=== PATIENT | female | born 1960 | race African-American/Black ===

== ENCOUNTER 2017-06-08 11:19 | Emergency (ER) | payer MEDICARE, MEDICAID | END 2017-06-08 11:47 | disposition home or self-care (01) | LOC: NAV ERS 11:19 | DX: H10.9 Unspecified conjunctivitis (principal); I12.0 Hypertensive chronic kidney disease with stage 5 chronic kidney disease or end stage renal disease; E11.22 Type 2 diabetes mellitus with diabetic chronic kidney disease; N18.6 End stage renal disease; F17.210 Nicotine dependence, cigarettes, uncomplicated; Z79.899 Other long term (current) drug therapy; Z79.82 Long term (current) use of aspirin | CPT/HCPCS: 99282 ==

== ENCOUNTER 2017-06-15 13:16 | Emergency (ER) | payer MEDICARE, MEDICAID ==
[2017-06-15 14:23] LABS: #Eosinphils 0.1 thou/uL (0.0-0.7); #Lymphocytes 0.3 thou/uL (1.20-3.40); #Monocytes 0.2 thou/uL (0.11-0.59); %Basophils 0.5 % (0.0-1.0); %Eosinophils 1.2 % (0.0-10.0); %Monocytes 4.8 % (0.0-10.0); %Neutrophils 86.5 % (42.0-75.0); Hemoglobin 11.6 g/dL (12.0-16.0); Mean Corpuscular HGB CONC 29.8 g/dL (32.0-36.0); Mean Corpuscular Hemoglobin 28.5 pg (27.0-31.0); Mean Corpuscular Volume 95.5 fl (81.0-99.0); Mean Platelet Volume 6.7 fL (7.4-10.4); Platelet Count 229 thou/uL (130-400); RBC Distribution Width 16.2 % (11.5-14.5); Red Blood Cell (RBC) Count 4.06 mill/uL (4.20-5.40); White Blood Cell (WBC) Count 4.7 thou/uL (4.8-10.8)
[2017-06-15 14:37] LABS: ALT (SGPT) 11 U/L (8-55); AST (SGOT) 16 U/L (5-34); Albumin 4.1 g/dL (3.5-5.0); Alkaline Phosphatase 98 U/L (40-150); Anion Gap 18 mmol/L (10-20); BUN (Urea Nitrogen) 23 mg/dL (9.8-20.1); Bilirubin, Total 0.5 mg/dL (0.2-1.2); Calc. Creatinine Clearance 0 mL/min (70-130); Calcium 9.9 mg/dL (7.8-10.44); Carbon Dioxide 30 mmol/L (22-29); Chloride 99 mmol/L (98-107); Estimated GFR-MDRD 14; Globulin 4.4 g/dL (2.4-3.5); Glucose 155 mg/dL (70-105); Potassium 3.3 mmol/L (3.5-5.1); Protein, Total 8.5 g/dL (6.0-8.3); Sodium 144 mmol/L (136-145)
[2017-06-15 14:38] LABS: Troponin I 0.103 ng/mL (< 0.028)
[2017-06-15 14:45] LABS: Critical Call CKMBM 0
--- NOTE | 2017-06-15 14:48 | RAD ---
PORTABLE AP CHEST X-RAY 06/15/2017 HISTORY: Shortness of breath. COMPARISON: 03/22/2017 FINDINGS: The cardiac silhouette remains enlarged. Vascular stents again overly the right axilla, in the geni on of the right brachiocephalic vein. The pulmonary vasculature is mildly increased. The lungs are otherwise clear. No other interval change. IMPRESSION: Mild congestive heart failure. Correlation for mild congestive heart failure is suggested. POS: [facility]
== END 2017-06-15 15:40 | disposition short-term general hospital (02) ==
LOC: NAV ERS 13:16
DX: I13.2 Hypertensive heart and chronic kidney disease with heart failure and with stage 5 chronic kidney disease, or end stage renal disease (principal); E11.22 Type 2 diabetes mellitus with diabetic chronic kidney disease; N18.6 End stage renal disease; I50.9 Heart failure, unspecified; Z99.2 Dependence on renal dialysis; F17.210 Nicotine dependence, cigarettes, uncomplicated; Z86.73 Personal history of transient ischemic attack (TIA), and cerebral infarction without residual deficits; Z79.82 Long term (current) use of aspirin; Z79.899 Other long term (current) drug therapy
CPT/HCPCS: 71010; 80053; 82553; 83880; 84484; 85025; 93005

== ENCOUNTER 2017-07-05 19:17 | Emergency (ER) | payer MEDICARE, MEDICAID ==
[2017-07-05] MEDS ORDERED: HYDROcodone/Acetaminophen 7.5/325 mg Tablet ONE (19:54)
[2017-07-05 19:57] LABS: #Eosinphils 0.1 thou/uL (0.0-0.7); #Lymphocytes 0.5 thou/uL (1.20-3.40); #Monocytes 0.3 thou/uL (0.11-0.59); #Neutrophils 4.9 thou/uL (1.40-6.50); %Basophils 0.3 % (0.0-1.0); %Eosinophils 1.4 % (0.0-10.0); %Lymphocytes 8.1 % (21.0-51.0); %Monocytes 5.6 % (0.0-10.0); %Neutrophils 84.6 % (42.0-75.0); Hemoglobin 10.6 g/dL (12.0-16.0); Mean Corpuscular HGB CONC 32.1 g/dL (32.0-36.0); Mean Corpuscular Hemoglobin 30.1 pg (27.0-31.0); Mean Corpuscular Volume 93.7 fl (81.0-99.0); Mean Platelet Volume 6.6 fL (7.4-10.4); Platelet Count 199 thou/uL (130-400); Red Blood Cell (RBC) Count 3.51 mill/uL (4.20-5.40); White Blood Cell (WBC) Count 5.8 thou/uL (4.8-10.8)
[2017-07-05 20:16] LABS: CKMB 5.1 ng/mL (0-6.6); Troponin I 0.244 ng/mL (< 0.028)
[2017-07-05 20:18] LABS: ALT (SGPT) 13 U/L (8-55); AST (SGOT) 16 U/L (5-34); Alkaline Phosphatase 104 U/L (40-150); Anion Gap 27 mmol/L (10-20); BUN (Urea Nitrogen) 47 mg/dL (9.8-20.1); Bilirubin, Total 0.4 mg/dL (0.2-1.2); Calc. Creatinine Clearance 0 mL/min (70-130); Calcium 10.3 mg/dL (7.8-10.44); Carbon Dioxide 27 mmol/L (22-29); Chloride 91 mmol/L (98-107); Estimated GFR-MDRD 8; Glucose 108 mg/dL (70-105)
[2017-07-05 20:22] LABS: Sodium 141 mmol/L (136-145)
[2017-07-05] MEDS ORDERED: Nitroglycerin 2% Ointment 1 INCH/1 GM Packet ONE (20:51)
--- NOTE | 2017-07-05 21:50 | CT ---
BRAIN CT WITHOUT IV CONTRAST: History: 56-year-old female with frontal temporal headaches which began this morning. Comparison: 09-11-14 FINDINGS: No focal mass or midline shift. No intra or extraaxial hemorrhage. Sinuses and mastoids are clear of acute process. IMPRESSION: No acute intracranial process. No mass or bleed. POS: [facility]
--- NOTE | 2017-07-05 21:52 | RAD ---
SEMI UPRIGHT PORTABLE CHEST ONE VIEW: History: 56-year-old female with dyspnea and headache. Comparison: 06-15-17 FINDINGS: Cardiomegaly with mild bilateral vascular congestion. Multiple right sided venous vascular stents. M ild increased interstitial markings, possibly some mild interstitial edema. No significant confluent pneumonia or pleural effusion. IMPRESSION: Cardiomegaly with some mild vascular congestion and possible mild interstitial edema, stable from pr ior study, 06-15-17. POS: [facility]
== END 2017-07-05 22:30 | disposition short-term general hospital (02) ==
LOC: NAV ERS 19:17
DX: G44.209 Tension-type headache, unspecified, not intractable (principal); R06.02 Shortness of breath; R79.89 Other specified abnormal findings of blood chemistry; E11.9 Type 2 diabetes mellitus without complications; I12.0 Hypertensive chronic kidney disease with stage 5 chronic kidney disease or end stage renal disease; N18.6 End stage renal disease; F17.210 Nicotine dependence, cigarettes, uncomplicated; Z99.2 Dependence on renal dialysis; Z79.899 Other long term (current) drug therapy; Z79.82 Long term (current) use of aspirin; Z86.73 Personal history of transient ischemic attack (TIA), and cerebral infarction without residual deficits
CPT/HCPCS: 36415; 70450; 71010; 80053; 82553; 83880; 84484; 85025; 93005; 94760

== ENCOUNTER 2017-09-29 15:51 | Emergency (ER) | payer MEDICARE, MEDICAID ==
[2017-09-29] MEDS ORDERED: Metoclopramide HCl 10 MG TAB ONE (16:12)
[2017-09-29] MEDS ORDERED: predniSONE 20 MG TAB ONE (16:12)
[2017-09-29] MEDS ORDERED: diphenhydrAMINE 25 MG CAP ONE (16:12)
[2017-09-29] MEDS ORDERED: HYDROcodone/Acetaminophen 10/325 mg Tablet ONE (16:18)
== END 2017-09-29 17:15 | disposition home or self-care (01) ==
LOC: NAV ERS 15:51
DX: G43.909 Migraine, unspecified, not intractable, without status migrainosus (principal); Z79.899 Other long term (current) drug therapy; Z79.82 Long term (current) use of aspirin
CPT/HCPCS: 99283; J7506

== ENCOUNTER 2017-10-06 12:25 | Emergency (ER) | payer MEDICARE, MEDICAID ==
--- NOTE | 2017-10-06 13:11 | RAD ---
CHEST ONE VIEW: History: 57-year-old female with dyspnea and shortness of breath. Comparison: 07-05-17 FINDINGS: Stable cardiomegaly and right sided venous vascular stents. Mild stable vascular congestion. No confl uent pneumonia, overt edema, or significant pleural effusion. IMPRESSION: Stable cardiomegaly and mild vascular congestion. No significant new process. POS: [facility]
[2017-10-06 13:36] LABS: ALT (SGPT) 19 U/L (8-55); AST (SGOT) 17 U/L (5-34); Albumin 3.8 g/dL (3.5-5.0); Alkaline Phosphatase 100 U/L (40-150); Anion Gap 21 mmol/L (10-20); BUN (Urea Nitrogen) 34 mg/dL (9.8-20.1); Bilirubin, Total 0.5 mg/dL (0.2-1.2); Calc. Creatinine Clearance 0 mL/min (70-130); Carbon Dioxide 31 mmol/L (22-29); Chloride 92 mmol/L (98-107); Estimated GFR-MDRD 8; Globulin 4.5 g/dL (2.4-3.5); Glucose 142 mg/dL (70-105); Potassium 3.4 mmol/L (3.5-5.1); Protein, Total 8.3 g/dL (6.0-8.3); Sodium 141 mmol/L (136-145); Troponin I 0.149 ng/mL (< 0.028)
[2017-10-06 13:39] LABS: CKMB 7.9 ng/mL (0-6.6)
[2017-10-06 14:36] LABS: #Lymphocytes 0.5 thou/uL (1.20-3.40); #Monocytes 0.3 thou/uL (0.11-0.59); #Neutrophils 3.5 thou/uL (1.40-6.50); %Basophils 0.7 % (0.0-1.0); %Eosinophils 0.8 % (0.0-10.0); %Lymphocytes 10.8 % (21.0-51.0); %Monocytes 6.7 % (0.0-10.0); Hemoglobin 10.3 g/dL (12.0-16.0); Mean Corpuscular HGB CONC 30.2 g/dL (32.0-36.0); Mean Corpuscular Hemoglobin 29.9 pg (27.0-31.0); Mean Corpuscular Volume 99.1 fl (81.0-99.0); Mean Platelet Volume 6.9 fL (7.4-10.4); Platelet Count 240 thou/uL (130-400); Red Blood Cell (RBC) Count 3.43 mill/uL (4.20-5.40); White Blood Cell (WBC) Count 4.3 thou/uL (4.8-10.8)
== END 2017-10-06 16:05 | disposition short-term general hospital (02) ==
LOC: NAV ERS 12:25
DX: J81.0 Acute pulmonary edema (principal); I12.0 Hypertensive chronic kidney disease with stage 5 chronic kidney disease or end stage renal disease; E11.22 Type 2 diabetes mellitus with diabetic chronic kidney disease; N18.6 End stage renal disease; F17.210 Nicotine dependence, cigarettes, uncomplicated; E78.5 Hyperlipidemia, unspecified; Z86.73 Personal history of transient ischemic attack (TIA), and cerebral infarction without residual deficits; Z99.2 Dependence on renal dialysis; Z79.82 Long term (current) use of aspirin; Z79.899 Other long term (current) drug therapy
CPT/HCPCS: 36415; 71010; 80053; 82553; 83880; 84484; 85025; 93005; 94760

== ENCOUNTER 2018-01-10 18:05 | Emergency (ER) | payer MEDICARE, MEDICAID ==
[2018-01-10] MEDS ORDERED: Ibuprofen 200 MG TAB ONE ×2 (18:43→18:44)
== END 2018-01-10 19:05 | disposition home or self-care (01) ==
LOC: NAV ERS 18:05
DX: S93.401A Sprain of unspecified ligament of right ankle, initial encounter (principal); I12.0 Hypertensive chronic kidney disease with stage 5 chronic kidney disease or end stage renal disease; E11.22 Type 2 diabetes mellitus with diabetic chronic kidney disease; F17.210 Nicotine dependence, cigarettes, uncomplicated; N18.6 End stage renal disease; E78.5 Hyperlipidemia, unspecified; Z86.73 Personal history of transient ischemic attack (TIA), and cerebral infarction without residual deficits; Z79.82 Long term (current) use of aspirin; Z79.899 Other long term (current) drug therapy; Z99.2 Dependence on renal dialysis; Z79.02 Long term (current) use of antithrombotics/antiplatelets; W19.XXXA Unspecified fall, initial encounter; Y93.01 Activity, walking, marching and hiking
CPT/HCPCS: 99283

== ENCOUNTER 2018-06-25 01:54 | Emergency (ER) | payer MEDICARE, MEDICAID ==
[2018-06-25] MEDS ORDERED: Metoclopramide HCl 10 MG TAB ONE (02:26)
[2018-06-25] MEDS ORDERED: Metoclopramide HCl 10 MG/2 ML VIAL ONE (02:26)
[2018-06-25] MEDS ORDERED: diphenhydrAMINE 50 MG/ML VIAL ONE (02:26)
[2018-06-25] MEDS ORDERED: cloNIDine 0.1 MG TAB ONE ×2 (02:38→03:29)
[2018-06-25 02:40] LABS: #Eosinphils 0.1 thou/uL (0.0-0.7); #Lymphocytes 0.4 thou/uL (1.20-3.40); #Monocytes 0.3 thou/uL (0.11-0.59); #Neutrophils 6.4 thou/uL (1.40-6.50); %Basophils 0.2 % (0.0-1.0); %Eosinophils 0.9 % (0.0-10.0); %Lymphocytes 5.4 % (21.0-51.0); %Monocytes 4.6 % (0.0-10.0); %Neutrophils 88.9 % (42.0-75.0); Mean Corpuscular HGB CONC 30.7 g/dL (32.0-36.0); Mean Corpuscular Hemoglobin 28.9 pg (27.0-31.0); Mean Corpuscular Volume 94.1 fL (78.0-98.0); Mean Platelet Volume 6.4 fL (7.4-10.4); Platelet Count 318 thou/uL (130-400); RBC Distribution Width 17.9 % (11.5-14.5); White Blood Cell (WBC) Count 7.2 thou/uL (4.8-10.8)
[2018-06-25 02:57] LABS: ALT (SGPT) 14 U/L (8-55); AST (SGOT) 20 U/L (5-34); Albumin 3.9 g/dL (3.5-5.0); Alkaline Phosphatase 117 U/L (40-150); Anion Gap 21 mmol/L (10-20); BUN (Urea Nitrogen) 34 mg/dL (9.8-20.1); Bilirubin, Total 0.3 mg/dL (0.2-1.2); CK (CPK) 122 U/L (29-168); Calc. Creatinine Clearance 0 mL/min (70-130); Calcium 10.6 mg/dL (7.8-10.44); Carbon Dioxide 28 mmol/L (22-29); Chloride 96 mmol/L (98-107); Estimated GFR-MDRD 8; Globulin 5.1 g/dL (2.4-3.5); Glucose 113 mg/dL (70-105); Lipase 38 U/L (8-78); Potassium 4.2 mmol/L (3.5-5.1); Sodium 141 mmol/L (136-145)
[2018-06-25 02:59] LABS: CKMB 3.5 ng/mL (0-6.6)
[2018-06-25] MEDS ORDERED: Diltiazem 125 MG/25 ML ONE (03:24)
[2018-06-25] MEDS ORDERED: Sodium Chloride 0.9% 100 ML ONE ×2 (03:25→03:26)
[2018-06-25] MEDS ORDERED: hydrALAZINE 20 MG/ML VIAL ONE (03:28)
--- NOTE | 2018-06-25 08:06 | RAD ---
SINGLE VIEW OF THE CHEST: COMPARISON: 10/06/17. HISTORY: Dyspnea. FINDINGS: A single view of the chest shows an enlarged but stable cardiomediastinal silhouette with atheroscler otic calcifications in the aorta. This exam is limited secondary to under penetration. There is no evidence of consolidation, mass, or pleural effusion. A stent projects over the right upper chest an d along the right upper extremity. IMPRESSION: Cardiomegaly without evidence of acute cardiopulmonary disease. POS: [facility]
== END 2018-06-25 04:18 | disposition short-term general hospital (02) ==
LOC: NAV ERS 01:54
DX: I12.0 Hypertensive chronic kidney disease with stage 5 chronic kidney disease or end stage renal disease (principal); N18.6 End stage renal disease; E11.22 Type 2 diabetes mellitus with diabetic chronic kidney disease; E78.5 Hyperlipidemia, unspecified; Z86.73 Personal history of transient ischemic attack (TIA), and cerebral infarction without residual deficits; Z99.2 Dependence on renal dialysis; F17.210 Nicotine dependence, cigarettes, uncomplicated; Z79.899 Other long term (current) drug therapy; Z79.82 Long term (current) use of aspirin
CPT/HCPCS: 36415; 71045; 80053; 82550; 82553; 83690; 83880; 84484; 85025; 93005; 94760; 96365; 96375; J0360; J1200; J2765; J7050

== ENCOUNTER 2018-09-01 14:26 | Emergency (ER) | payer MEDICARE, MEDICAID ==
[2018-09-01 15:16] LABS: #Eosinphils 0.1 thou/uL (0.0-0.7); #Lymphocytes 0.5 thou/uL (1.20-3.40); #Monocytes 0.3 thou/uL (0.11-0.59); %Basophils 0.3 % (0.0-1.0); %Eosinophils 2.5 % (0.0-10.0); %Lymphocytes 12.2 % (21.0-51.0); %Monocytes 6.4 % (0.0-10.0); %Neutrophils 78.6 % (42.0-75.0); Hemoglobin 9.8 g/dL (12.0-16.0); Mean Corpuscular HGB CONC 29.9 g/dL (32.0-36.0); Mean Corpuscular Hemoglobin 30.8 pg (27.0-31.0); Mean Platelet Volume 6.9 fL (7.4-10.4); Platelet Count 194 thou/uL (130-400); Red Blood Cell (RBC) Count 3.17 mill/uL (4.20-5.40); White Blood Cell (WBC) Count 3.9 thou/uL (4.8-10.8)
[2018-09-01 15:20] LABS: INR-International Normal Ratio 1.1; PTT 29.2 SEC (22.9-36.1); Prothrombin Time 14.1 SEC (12.0-14.7)
[2018-09-01 15:29] LABS: ALT (SGPT) 6 U/L (8-55); AST (SGOT) 11 U/L (5-34); Albumin 3.8 g/dL (3.5-5.0); Alkaline Phosphatase 83 U/L (40-150); Anion Gap 18 mmol/L (10-20); BUN (Urea Nitrogen) 24 mg/dL (9.8-20.1); Bilirubin, Total 0.5 mg/dL (0.2-1.2); Calc. Creatinine Clearance 0 mL/min (70-130); Calcium 9.4 mg/dL (7.8-10.44); Carbon Dioxide 29 mmol/L (22-29); Chloride 94 mmol/L (98-107); Estimated GFR-MDRD 14; Globulin 4.3 g/dL (2.4-3.5); Glucose 150 mg/dL (70-105); Potassium 3.5 mmol/L (3.5-5.1); Protein, Total 8.1 g/dL (6.0-8.3); Sodium 137 mmol/L (136-145)
== END 2018-09-01 15:59 | disposition home or self-care (01) ==
LOC: NAV ERS 14:26
DX: K92.2 Gastrointestinal hemorrhage, unspecified (principal); E11.9 Type 2 diabetes mellitus without complications; E78.5 Hyperlipidemia, unspecified; I12.0 Hypertensive chronic kidney disease with stage 5 chronic kidney disease or end stage renal disease; N18.6 End stage renal disease; Z99.2 Dependence on renal dialysis; F17.210 Nicotine dependence, cigarettes, uncomplicated
CPT/HCPCS: 80053; 82274; 85025; 85610; 85730

== ENCOUNTER 2018-12-10 18:38 | Emergency (ER) | payer MEDICARE, MEDICAID ==
[2018-12-10] MEDS ORDERED: diphenhydrAMINE 12.5 MG/5 ML UDCUP ONE (19:15)
[2018-12-10] MEDS ORDERED: Metoclopramide HCl 10 MG/2 ML VIAL ONE (19:15)
[2018-12-10] MEDS ORDERED: diphenhydrAMINE 50 MG/ML VIAL ONE (19:16)
== END 2018-12-10 20:00 | disposition home or self-care (01) ==
LOC: NAV ERS 18:38
DX: G43.909 Migraine, unspecified, not intractable, without status migrainosus (principal); I12.0 Hypertensive chronic kidney disease with stage 5 chronic kidney disease or end stage renal disease; E11.22 Type 2 diabetes mellitus with diabetic chronic kidney disease; N18.6 End stage renal disease; F17.210 Nicotine dependence, cigarettes, uncomplicated; Z79.82 Long term (current) use of aspirin; Z79.899 Other long term (current) drug therapy; Z79.891 Long term (current) use of opiate analgesic
CPT/HCPCS: 96374; 96375; J1200; J2765; Q0163

== ENCOUNTER 2019-01-02 13:32 | Emergency (ER) | payer MEDICARE, MEDICAID ==
[2019-01-02] MEDS ORDERED: methylPREDNISolone Sod Succ/PF 125 MG/2 ML VIAL ONE (13:54)
[2019-01-02] MEDS ORDERED: cefTRIAXone\\ROCEPHIN 1 GM VIAL ONE (13:54)
[2019-01-02 14:22] LABS: ALT (SGPT) 14 U/L (8-55); AST (SGOT) 19 U/L (5-34); Albumin 3.7 g/dL (3.5-5.0); Alkaline Phosphatase 83 U/L (40-150); Anion Gap 30 mmol/L (10-20); BUN (Urea Nitrogen) 51 mg/dL (9.8-20.1); Bilirubin, Total 0.2 mg/dL (0.2-1.2); CK (CPK) 144 U/L (29-168); Calc. Creatinine Clearance 0 mL/min (70-130); Calcium 10.3 mg/dL (7.8-10.44); Carbon Dioxide 26 mmol/L (22-29); Chloride 91 mmol/L (98-107); Estimated GFR-MDRD 9; Globulin 4.3 g/dL (2.4-3.5); Glucose 89 mg/dL (70-105); Sodium 141 mmol/L (136-145)
--- NOTE | 2019-01-02 14:28 | RAD ---
RADIOGRAPH CHEST 1 VIEW: Date: 01/02/2019. Time: 2:00 p.m. HISTORY: A 58-year-old female with dyspnea. COMPARISON: 12/30/2018. FINDINGS: Cardiomegaly. No alejandro pulmonary edema. Prominent interstitial markings. Subsegmental atelectasis at right base. No consolidation otherwise. Vascular stent in right arm (surrounded by large eggshel l calcification). Vascular stent from right medial supraclavicular level to right upper mediastinum. No pneumothorax. No effacement of lateral costophrenic angles. Mild pulmonary venous congestion. No interval change overall. IMPRESSION: 1. Cardiomegaly and mild pulmonary venous congestion. 2. Right-sided vascular stents. 3. No alejandro pulmonary alveolar edema. 4. No interval change since 3 days ago. NGOZI [] POS: [facility]
[2019-01-02 14:32] LABS: #Eosinphils 0.1 thou/uL (0.0-0.7); #Lymphocytes 0.4 thou/uL (1.20-3.40); #Monocytes 0.3 thou/uL (0.11-0.59); #Neutrophils 5.3 thou/uL (1.40-6.50); %Basophils 0.2 % (0.0-1.0); %Eosinophils 2.4 % (0.0-10.0); %Lymphocytes 6.1 % (21.0-51.0); %Monocytes 4.9 % (0.0-10.0); %Neutrophils 86.5 % (42.0-75.0); Hemoglobin 8.7 g/dL (12.0-16.0); Mean Corpuscular HGB CONC 30.1 g/dL (32.0-36.0); Mean Corpuscular Hemoglobin 28.5 pg (27.0-31.0); Mean Corpuscular Volume 94.7 fL (78.0-98.0); Mean Platelet Volume 6.6 fL (7.4-10.4); Platelet Count 221 thou/uL (130-400); RBC Distribution Width 16.8 % (11.5-14.5); Red Blood Cell (RBC) Count 3.07 mill/uL (4.20-5.40); White Blood Cell (WBC) Count 6.1 thou/uL (4.8-10.8)
[2019-01-02] MEDS ORDERED: Dextrose 50% Abboject 50 ML SYRINGE ONE (14:46)
[2019-01-02] MEDS ORDERED: Insulin Regular 300 UNITS/3 ML VIAL ONE (14:46)
[2019-01-02 14:54] LABS: CKMB 7.5 ng/mL (0-6.6)
[2019-01-02] MEDS ORDERED: Calcium Chloride 1 GM/10 ML Abboject SYRINGE ONE (14:54)
[2019-01-02] MEDS ORDERED: Calcium Gluc 4.6 MEQ/10 ML (100 MG/ML) ONE (14:57)
== END 2019-01-02 15:20 | disposition short-term general hospital (02) ==
LOC: NAV ERS 13:32
DX: I45.2 Bifascicular block (principal); E11.9 Type 2 diabetes mellitus without complications; E78.5 Hyperlipidemia, unspecified; I12.0 Hypertensive chronic kidney disease with stage 5 chronic kidney disease or end stage renal disease; N18.6 End stage renal disease; Z86.73 Personal history of transient ischemic attack (TIA), and cerebral infarction without residual deficits; Z99.2 Dependence on renal dialysis; F17.210 Nicotine dependence, cigarettes, uncomplicated; Z79.899 Other long term (current) drug therapy; Z79.82 Long term (current) use of aspirin
CPT/HCPCS: 71045; 80053; 82550; 82553; 84484; 85025; 93005; 94640; 94760; 96374; 96375; J0696; J1815; J2930; J7620

== ENCOUNTER 2019-03-04 22:08 | Emergency (ER) | payer MEDICARE, MEDICAID ==
--- NOTE | 2019-03-04 23:46 | RAD ---
EXAM: Chest PA and lateral: HISTORY: Dyspnea COMPARISON: 01/02/2019 FINDINGS: Heart: Cardiomegaly Aorta: Atherosclerosis Pulmonary vessels: Normal Costophrenic angles: Costophrenic angles are clear. Lungs: Multifocal alveolar opacities. Pneumothorax: No pneumothorax Osseous structures: No osseous abnormalities Stable vascular stent. Stable calcification in the medial right upper extremity soft tissue. IMPRESSION: 1. Cardiomegaly. Multi focal alveolar edema. Volume overload. 2. Atherosclerosis.
== END 2019-03-04 23:59 | disposition home or self-care (01) ==
LOC: NAV ERS 22:08
DX: I13.2 Hypertensive heart and chronic kidney disease with heart failure and with stage 5 chronic kidney disease, or end stage renal disease (principal); I50.9 Heart failure, unspecified; N18.6 End stage renal disease; F17.210 Nicotine dependence, cigarettes, uncomplicated; Z86.73 Personal history of transient ischemic attack (TIA), and cerebral infarction without residual deficits; Z79.899 Other long term (current) drug therapy; Z79.82 Long term (current) use of aspirin
CPT/HCPCS: 71046; 94640; 94760; J7620

== ENCOUNTER 2019-03-10 10:26 | Emergency (ER) | payer MEDICARE, MEDICAID ==
[2019-03-10] MEDS ORDERED: Bacitracin Zinc 1 Packet ONE (10:57)
[2019-03-10] MEDS ORDERED: cloNIDine 0.2 MG TAB ONE (11:22)
== END 2019-03-10 12:25 | disposition home or self-care (01) ==
LOC: NAV ERS 10:26
DX: L08.89 Other specified local infections of the skin and subcutaneous tissue (principal); I10 Essential (primary) hypertension; E11.9 Type 2 diabetes mellitus without complications; K21.9 Gastro-esophageal reflux disease without esophagitis; E78.5 Hyperlipidemia, unspecified; Z87.891 Personal history of nicotine dependence; Z79.82 Long term (current) use of aspirin; Z79.02 Long term (current) use of antithrombotics/antiplatelets; Z79.899 Other long term (current) drug therapy
CPT/HCPCS: 36416; 99283

== ENCOUNTER 2020-04-23 14:54 | Emergency (ER) | payer MEDICARE, MEDICAID ==
--- NOTE | 2020-04-23 16:02 | RAD ---
Left ankle 3 views HISTORY: Pain and swelling. FINDINGS: Joint spaces are preserved. Mild osteophytosis. Small nonspecific dystrophic soft tissue ca lcifications about the middle phalanx and proximal interphalangeal joint. Diffuse soft tissue swelling about the distal phalanx without aggressive osseous erosions or soft tis yovany gas evident. IMPRESSION : Soft tissue swelling of the distal ring finger. No soft tissue gas or evidence of active bone involve ment. Osteoarthritic changes.
[2020-04-23] MEDS ORDERED: Cephalexin 250 MG CAP ONE (16:11)
== END 2020-04-23 16:50 | disposition home or self-care (01) ==
LOC: NAV ERS 14:54
DX: S60.312A Abrasion of left thumb, initial encounter (principal); M79.645 Pain in left finger(s); E11.22 Type 2 diabetes mellitus with diabetic chronic kidney disease; I12.0 Hypertensive chronic kidney disease with stage 5 chronic kidney disease or end stage renal disease; N18.6 End stage renal disease; K21.9 Gastro-esophageal reflux disease without esophagitis; E78.5 Hyperlipidemia, unspecified; E78.00 Pure hypercholesterolemia, unspecified; Z99.2 Dependence on renal dialysis; Z87.891 Personal history of nicotine dependence; Z79.899 Other long term (current) drug therapy; W22.8XXA Striking against or struck by other objects, initial encounter

== ENCOUNTER 2020-05-02 01:50 | Emergency (ER) | payer MEDICARE, MEDICAID ==
[2020-05-02] MEDS ORDERED: cloNIDine 0.2 MG TAB ONE (02:09)
[2020-05-02] MEDS ORDERED: traMADol HCl 50 MG TAB ONE ×2 (02:09→03:07)
== END 2020-05-02 03:38 | disposition home or self-care (01) ==
LOC: NAV ERS 01:50
DX: E11.51 Type 2 diabetes mellitus with diabetic peripheral angiopathy without gangrene (principal); I12.0 Hypertensive chronic kidney disease with stage 5 chronic kidney disease or end stage renal disease; E11.22 Type 2 diabetes mellitus with diabetic chronic kidney disease; N18.6 End stage renal disease; K21.9 Gastro-esophageal reflux disease without esophagitis; E78.5 Hyperlipidemia, unspecified; E78.00 Pure hypercholesterolemia, unspecified; F17.210 Nicotine dependence, cigarettes, uncomplicated; Z79.899 Other long term (current) drug therapy; Z99.2 Dependence on renal dialysis
CPT/HCPCS: 94760